=== PATIENT | female | born 1970 | race Caucasian/White ===

== ENCOUNTER → 2017-05-04 | Emergency (ER) | payer MEDICAID ==
[~2017-05-04] VITALS: Ht 172.7 cm; Wt 119.8 kg
--- NOTE | 2017-05-04 00:42 | Emergency Room Report ---
History of Present Illness Time Seen by MD Varner Presenting Problem in Triage Pt arrived:Wheelchair Presenting Problem:C/O MIGRAINE HEADACHE SINCE 1729. STATES SHE IS LIGHT SENSITIVE AND HAVING BLACK SPOTS IN HER VISION. HX MIGRAINES, STATES SHE TOOK TYLENOL AND BENADRYL AT HOME AT APPROX 1930. 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 N Clinical Suspician of Infection? N Mental Status: 1 - Regular (Normal Baseline) Sepsis Risk:Low Sepsis Risk Have you (or family members/close friends) recently traveled outside the [place]? N If Yes, where/when: Have you had exposure to infectious disease within the past month? N TB? Other? Specify: Source patient, RN notes reviewed, family, old records Exam Limitations no limitations Comment pt with hx of rivera with acute onset of rivera with visual scotoma- no fever or rash and no trauma Cardiac Chest Pain Chest pain indicative of cardiac No Timing/Duration this evening Severity moderate ALLERGIES Coded Allergies: clarithromycin (From BIAXIN) (12/01/16) ibuprofen (05/04/17) naproxen (From ALEVE) (12/01/16) penicillin G (12/01/16) Home Medications Reported Medications No Home Medications (NO HOME MEDICATIONS) 1 EACH XX ONCE Escitalopram Oxalate (Lexapro 20MG) 20 MG PO DAILY Hydroxyzine Pamoate (Vistaril) 25 MG PO TID OMEPRAZOLE MAGNESIUM (Prilosec 20MG) 20 MG PO DAILY Alprazolam 0.25 MG PO DAILY #14 History Medical History General CAD? No Angina: No [place]: No Hypertension? No Hyperlipidemia? No CHF? No DVT? No PE? No COPD? No Asthma? No Anemia? No GERD? No Gastric ulcers? No GI Bleed? No Hernia? Yes Thyroid Problems? No Hypothyroidism? No CVA? No Seizures? Yes Diabetes? No Insulin Dependent: No Insulin Pump: No End Stage Renal Disease? No UTI? Yes Stones? No BPH? No GB Disease: Yes Nephritic Syndrome? No Asplenia? No Hepatitis? No Sickle Cell Disease? No Arthritis? No Migraines? Yes Cataracts? No Glaucoma? No MRSA? Yes HIV? No TB? No Anxiety? No Depression? No Cancer? No More? 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 Respiratory denies cough, denies shortness of breath, denies wheezing Cardiovascular denies chest pain, denies syncope Gastrointestinal see HPI, denies abdominal pain, denies diarrhea, nausea, denies vomiting Genitourinary denies: dysuria, frequency, hesitancy, hematuria. Musculoskeletal denies back pain, denies joint pain, denies neck pain Skin denies rash Psychiatric/Neurological see HPI, headache, denies seizure Physical Exam Vital Signs Vital Signs Date Time Temp Pulse Resp B/P Pulse O2 O2 Flow FiO2 Ox Delivery Rate 05/04 0015 98.0 71 20 158/95 97 - WBC >12,000 or <4,000 or 10% bands? 2 or more SIRS Criteria Met? B/P:158/95 MAP:116 Creatinine >2.0? UA output<0.5ml/kg/hr for 2 hrs? Platelet count >100,000? Lactate >2.0mmol/1? INR >1.2 or PTT > than 60 sec? Evidence of Organ Dysfunction? Provider documented clinical suspician of infection? N Sepsis Criteria Count: 1 Sepsis Risk: Low Sepsis Risk General Appearance no apparent distress Eye Exam - bilateral eye PERRL, bilateral eye EOMI Ear, Nose, Throat normal ENT inspection Neck non-tender Respiratory Status No: respiratory distress. 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 No Departure Departure Time of Disposition 0037 Disposition DC Home or Self Care(routine) Clinical Impression Primary Impression: Headache Qualifiers: Headache type: unspecified Headache chronicity pattern: acute headache Intractability: not intractable Qualified Code: R51 - Headache Condition STABLE Referrals Mei Kamara APRN Patient Instructions DI for Headache Additional Instructions call pcp in am for follow up Discharge Counseling Counseled pt/family regarding diagnosis, medications/RX, follow up needs ED Critical Care Critical Care No at 0042
--- NOTE | 2017-05-04 00:42 | Emergency Room Report ---
History of Present Illness Time Seen by MD Varner Presenting Problem in Triage Pt arrived:Wheelchair Presenting Problem:C/O MIGRAINE HEADACHE SINCE 1729. STATES SHE IS LIGHT SENSITIVE AND HAVING BLACK SPOTS IN HER VISION. HX MIGRAINES, STATES SHE TOOK TYLENOL AND BENADRYL AT HOME AT APPROX 1930. 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 N Clinical Suspician of Infection? N Mental Status: 1 - Regular (Normal Baseline) Sepsis Risk:Low Sepsis Risk Have you (or family members/close friends) recently traveled outside the [place]? N If Yes, where/when: Have you had exposure to infectious disease within the past month? N TB? Other? Specify: Source patient, RN notes reviewed, family, old records Exam Limitations no limitations Comment pt with hx of rivera with acute onset of rivera with visual scotoma- no fever or rash and no trauma Cardiac Chest Pain Chest pain indicative of cardiac No Timing/Duration this evening Severity moderate ALLERGIES Coded Allergies: clarithromycin (From BIAXIN) (12/01/16) ibuprofen (05/04/17) naproxen (From ALEVE) (12/01/16) penicillin G (12/01/16) Home Medications Reported Medications No Home Medications (NO HOME MEDICATIONS) 1 EACH XX ONCE Escitalopram Oxalate (Lexapro 20MG) 20 MG PO DAILY Hydroxyzine Pamoate (Vistaril) 25 MG PO TID OMEPRAZOLE MAGNESIUM (Prilosec 20MG) 20 MG PO DAILY Alprazolam 0.25 MG PO DAILY #14 History Medical History General CAD? No Angina: No ID: No Hypertension? No Hyperlipidemia? No CHF? No DVT? No PE? No COPD? No Asthma? No Anemia? No GERD? No Gastric ulcers? No GI Bleed? No Hernia? Yes Thyroid Problems? No Hypothyroidism? No CVA? No Seizures? Yes Diabetes? No Insulin Dependent: No Insulin Pump: No End Stage Renal Disease? No UTI? Yes Stones? No BPH? No GB Disease: Yes Nephritic Syndrome? No Asplenia? No Hepatitis? No Sickle Cell Disease? No Arthritis? No Migraines? Yes Cataracts? No Glaucoma? No MRSA? Yes HIV? No TB? No Anxiety? No Depression? No Cancer? No More? 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 Respiratory denies cough, denies shortness of breath, denies wheezing Cardiovascular denies chest pain, denies syncope Gastrointestinal see HPI, denies abdominal pain, denies diarrhea, nausea, denies vomiting Genitourinary denies: dysuria, frequency, hesitancy, hematuria. Musculoskeletal denies back pain, denies joint pain, denies neck pain Skin denies rash Psychiatric/Neurological see HPI, headache, denies seizure Physical Exam Vital Signs Vital Signs Date Time Temp Pulse Resp B/P Pulse O2 O2 Flow FiO2 Ox Delivery Rate 05/04 0015 98.0 71 20 158/95 97 - WBC >12,000 or <4,000 or 10% bands? 2 or more SIRS Criteria Met? B/P:158/95 MAP:116 Creatinine >2.0? UA output<0.5ml/kg/hr for 2 hrs? Platelet count >100,000? Lactate >2.0mmol/1? INR >1.2 or PTT > than 60 sec? Evidence of Organ Dysfunction? Provider documented clinical suspician of infection? N Sepsis Criteria Count: 1 Sepsis Risk: Low Sepsis Risk General Appearance no apparent distress Eye Exam - bilateral eye PERRL, bilateral eye EOMI Ear, Nose, Throat normal ENT inspection Neck non-tender Respiratory Status No: respiratory distress. 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 No Departure Departure Time of Disposition 0037 Disposition DC Home or Self Care(routine) Clinical Impression Primary Impression: Headache Qualifiers: Headache type: unspecified Headache chronicity pattern: acute headache Intractability: not intractable Qualified Code: R51 - Headache Condition STABLE Referrals Mei Kamara APRN Patient Instructions DI for Headache Additional Instructions call pcp in am for follow up Discharge Counseling Counseled pt/family regarding diagnosis, medications/RX, follow up needs ED Critical Care Critical Care No at 0042
[2017-05-04 00:58] VITALS: BP 138/89
--- OUTSIDE RECORDS SUMMARY | 2017-05-14 02:23 | External Medical Summary Rpt | CCD ---
Demographics Preferred Language Vietnamese Marital Status Unknown Christian Affiliation Unknown Race Unknown Ethnic Group Unknown Author Author , DIANNE DEAN Address Unknown Phone Immunization Unable to retrieve immunization data due to connection failure with Immunization Registry. Please try again later.
--- OUTSIDE RECORDS SUMMARY | 2017-05-14 02:23 | External Medical Summary Rpt | CCD ---
Demographics Preferred Language Romansh Marital Status Unknown Faith Affiliation Unknown Race Unknown Ethnic Group Unknown Author Author , DIANNE DEAN Address Unknown Phone Immunization Unable to retrieve immunization data due to connection failure with Immunization Registry. Please try again later.
== END ==
LOC: ER 00:11
DX: R51 Headache (principal); Z88.0 Allergy status to penicillin; Z88.6 Allergy status to analgesic agent; F17.210 Nicotine dependence, cigarettes, uncomplicated

== ENCOUNTER → 2017-05-21 | Outpatient (CLI) | payer MEDICAID ==
[~2017-05-21] MED LIST: ALBUTEROL2 PUFFS/17 IN; ALPRAZOLAM0.25 M2 PO; ALPRAZOLAM0.5 M3 PO; ANUSOL HC 25MG25 MG PR; APAP/BUTALBITAL1 TA1 PO; ATIVAN1 M1 PO; ATIVAN1 MG OR; ATIVAN1 MG PO; AURALGAN OT10 ML/BOT OT; AVELOX400 MG PO; BACTRIM DS 8001 TA1 PO; BACTRIM DS 8001 TAB PO; BENTYL GENERIC10 MG PO; BIAXIN500 MG PO; CIPRO 500MG TA500 MG PO; CORTISPORIN OTI10 M1 OT; DARVOCET-N 1001 EACH PO; DARVOCET-N6 EACH/PAK PO; DOXYCYCLINE MO100 MG PO; DULCOLAX 5MG TAB5 MG PO; FIBER CHOICE1 CTB PO; FIORICET 325 MG1 TAB PO; FLEXERIL10 M1 PO; FLEXERIL10 MG PO; HYDROCODONE1 TABLET PO; KEFLEX 500MG.500 MG PO; LEVAQUIN500 MG PO; LEVSIN 0.1250.125 MG SL; LEXAPRO 20 MG T20 MG PO; LOMOTIL 2.5MG.2.5 MG PO; LORTAB 5/500 501 TAB; LORTAB 5/500 501 TAB PO; LORTAB 500 MG-71 TAB PO; MEDROL 4MG. DOSE4 MG PO; NAPROSYN 500MG500 MG PO; NEURONTIN 100100 MG OR; NOMEDS; NOMEDS *; NOMEDS XX; PERCOCET 10 MG1 EACH PO; PERCOCET 5/3251 EACH PO; PERCOGESIC EXTR1 TAB PO; PHENERGAN 25MG.25 M1 PO; PREDNISONE 10MG10 MG PO; PREDNISONE 20MG20 MG PO; PREDNISONE 5MG.5 MG PO; PREDNISONE50 MG PO; PREMARIN1.25 MG PO; PRILOSEC20 M1 PO; PROAIR HFA0.09 MG/AC IH; PYRIDIATE200 MG PO; ROBAXIN-750750 MG PO; SEPTRA DS 800 M1 TAB PO; SKELAXIN 800MG800 MG PO; STERAPRED DS10 MG PO; SULFAMETHOXAZOL1 TA6 PO; TESSALON PERLE100 M1 PO; TESSALON PERLE100 MG PO; TRAMADOL 50MG T50 MG PO; TRAZODONE50 MG PO; TYLENOL 325MG325 MG PO; TYLENOL ES500 M1 PO; TYLENOL ES500 MG PO; TYLENOL EXTRA500 M1 PO; TYLENOL PM1 CAP PO; TYLENOL W/CODEI1 TA2 PO; Tramadol HCl50 MG PO; ULTRACET 325 MG1 TAB PO; ULTRAM 50 MG TA50 MG PO; VICODIN 5/500 T1 TAB PO; VICODIN 7.5/501 EACH PO; VISTARIL25 M1 PO; VISTARIL25 MG PO; XANAX0.5 MG PO; ZANAFLEX4 MG PO; ZITHROMAX Z PA250 MG PO; ZOFRAN ODT8 MG PO
[2017-05-21 19:16] LABS: AMPHETAMINES/METAMPHETAMINES NEGATIVE ng/mL (<1000)
== END ==
LOC: LAB 15:25
PROVIDERS: Nurse Practitioner Family
DX: Z79.899 Other long term (current) drug therapy (principal)

== ENCOUNTER 2017-05-29 19:22 | Emergency (ER) | payer MEDICAID ==
[~2017-05-29] VITALS: Ht 167.6 cm; Wt 128.8 kg
[~2017-05-29 19:22] MED LIST changes: -PROAIR HFA0.09 MG/AC IH; -TESSALON PERLE100 M1 PO
--- NOTE | 2017-05-29 19:56 | Urgent Treatment Center Report ---
History of Present Issue Date/Time Seen by Provider 05/29/171948 Visit Reason Pt arrived:Walked Presenting Problem:PT C/O NON-PRODUCTIVE COUGH, SOA, CHEST CONGESTION X1.5 WEEKS Location if Accident: Onset of symptoms date/time:/ or onset unknown for:MEDICAL HX UNKNOWN Have you (or family members/close friends) recently traveled outside the [place]? N If Yes, where/when: Have you had exposure to infectious disease within the past month? TB? Other? Specify: Patient state that she has not bee feeling well, State that she feels like she may have bronchitis or maybe even pneumonia State that she has had cough, feeling like she couldn't get good breath and congestion in her chest for around 2 weeks now State that she thought she better come in and get it checked out ALLERGIES Coded Allergies: clarithromycin (From BIAXIN) (12/01/16) ibuprofen (05/04/17) naproxen (From ALEVE) (12/01/16) penicillin G (12/01/16) Home Medications Reported Medications No Home Medications (NO HOME MEDICATIONS) 1 EACH XX ONCE Escitalopram Oxalate (Lexapro 20MG) 20 MG PO DAILY Hydroxyzine Pamoate (Vistaril) 25 MG PO TID OMEPRAZOLE MAGNESIUM (Prilosec 20MG) 20 MG PO DAILY Alprazolam 0.25 MG PO DAILY #14 History Medical History General CAD? No Angina: No [place]: No Hypertension? No Hyperlipidemia? No CHF? No DVT? No PE? No COPD? No Asthma? No Anemia? No GERD? No Gastric ulcers? No GI Bleed? No Hernia? Yes Thyroid Problems? No Hypothyroidism? No CVA? No Seizures? Yes Diabetes? No Insulin Dependent: No Insulin Pump: No Renal Insuffiency? No UTI? Yes Stones? No BPH? No GB Disease: Yes Nephritic Syndrome? No Asplenia? No Hepatitis? No Sickle Cell Disease? No Arthritis? No Migraines? Yes Cataracts? No Glaucoma? No MRSA? Yes HIV? No TB? No Anxiety? No Depression? No Cancer? No More? No Immunization HX DT/Tetanus 5-10 YRS Flu NEVER Pneumonia NEVER Surgical Hx Previous Surgery?Y X 1 Tonsils Tubal Ligation ROGERIO REMOVAL OF ADHESIONS X5 EARS-KERATOSIS REMOVAL HERNIA REPAIR X3 RIGHT SHOULDER REPAIR HEMORRHOIDECTOMY X 3 LEFT SHOULDER CHOLECYSTECTOMY RT BSO REMOVAL ABD ADHESIONS HYSTERECTOMY COMPLET Family History Family HX Diabetes No CAD Yes Hypertension Yes Hyperlipidemia Yes Cancer No TB No Social History Smoking Hx Smoker: Current Every Day Smoker Tobacco: Yes Type Cigarettes Packs/day 1 1/2 - 2 Packs Alcohol Alcohol: No Review of Systems All Other Systems Reviewed and Negative Constitutional fever ENT throat pain. Respiratory cough, shortness of breath, denies stridor, denies wheezing Cardiovascular denies chest pain, denies palpitations Physical Exam Vital Signs Vital Signs Date Time Temp Pulse Resp B/P Pulse O2 O2 Flow FiO2 Ox Delivery Rate 05/29 1931 97.8 83 20 114/63 94 General Appearance normal appearance, WD/WN, no apparent distress Ear, Nose, Throat Throat red, irritated Respiratory Status Yes: trachea midline, chest symmetrical. No: respiratory distress. Lung Sounds bilateral: normal breath sounds. right: rhonchi. Cardiovascular normal exam, regular rate/rhythm Peripheral Pulses Pulses normal Yes Gastrointestinal normal bowel sounds, normal exam, non tender Strength 4 Upper Ext (L), 4 Upper Ext (R), 4 Lower Ext (L), 4 Lower Ext (R) Neurologic alert, normal exam, oriented x 3 Medical Decision Making LABS/Meds/Orders Pt receiving controlled substance in ED? No Results/Orders Current Medication Orders Sig/Luz Start time Last Medication Dose Route Stop Time Status Admin Levofloxacin 500 MG ONCE ONE 05/29 2015 AC PO 05/29 2016 Orders Procedure Date/time Status CHEST(2 VIEWS-NOT PORTABLE) 05/29 1931 Active XRAY/CT/US XRAY/CT/US XRAY chest XR interpretation by reviewed by me Comment Discussed with Dr Jaime Departure Departure Time of Disposition 1956 Disposition [place] Home or Self Care(routine) Clinical Impression Primary Impression: Bronchitis Condition STABLE Referrals Mei Kamara APRN (Family): 2 Days-Call Office Patient Instructions DI for Acute Bronchitis, DI for Chronic Bronchitis, Guaifenesin Additional Instructions * Monitor Temp. Tylenol and/or Ibuprofen as needed. ER if fever is no less than 101 despite alternating Tylenol and Ibuprofen * Encourage fluids, water, Gatorade, powerade, pedialyte if /toddler/or child * Warm salt water gargles for throat irritation *Warm fluids *Sore throat lozenges *Sleep elevated *humidifier or vaporizer Lots of rest Increase fluids, water, Gatorade, powerade Discharge Counseling Counseled pt/family regarding diagnosis, test results, medications/RX, home care, follow up needs Prescriptions Current Visit Scripts Levofloxacin (Levaquin 500MG) 500 MG PO DAILY #7 TAB Albuterol Sulfate (Proair Hfa) 2 PUFFS IH Q6HP PRN shortness of air #1 INH Methylprednisolone (Medrol Dose Donald) 4 MG PO UD #1 DONALD TAKE DIRECTED ON PACKAGING Benzonatate (Tessalon Perle) 100 MG PO TID #15 SGL at 2005
[2017-05-29] MEDS ORDERED: MEDROL 4MG. DOSE4 MG PO (20:04)
[2017-05-29] MEDS ORDERED: TESSALON PERLE100 M1 PO (20:04)
[2017-05-29] MEDS ORDERED: LEVAQUIN500 MG PO (20:04)
[2017-05-29] MEDS ORDERED: PROAIR HFA0.09 MG/AC IH (20:04)
[2017-05-29 20:21] VITALS: BP 114/63
--- OUTSIDE RECORDS SUMMARY | 2017-05-29 21:08 | External Medical Summary Rpt | CCD ---
Demographics Preferred Language Danish Marital Status Unknown Congregation Affiliation Unknown Race Unknown Ethnic Group Unknown Author Author , DIANNE DEAN Address Unknown Phone Immunization No patient found.
--- OUTSIDE RECORDS SUMMARY | 2017-05-29 21:08 | External Medical Summary Rpt | CCD ---
Demographics Preferred Language Haitian Marital Status Unknown Latter Day Affiliation Unknown Race Unknown Ethnic Group Unknown Author Author , DIANNE DEAN Address Unknown Phone Immunization No patient found.
--- OUTSIDE RECORDS SUMMARY | 2017-05-29 21:08 | External Medical Summary Rpt ---
Author Author DIANNE Wolfe, [employer] Address Unknown Phone Unavailable
--- NOTE | 2017-05-30 06:32 | RADIOLOGY REPORT PS360 ---
CHEST(2 VIEWS-NOT PORTABLE) HISTORY: COUGH, SOA, CHEST CONGESTION X1.5 WEEKS ORDERING PHYSICIAN: MINE PLEITEZ APRN PATIENT AGE: 46 years COMPARISON: 09/15/2010 FINDINGS: Unremarkable heart size. There is chronic coarsening of the bronchovascular markings. Patchy density is noted in the right lower lung zone consistent with an area of atelectasis and/or infiltrate superimposed upon chronic changes. Postsurgical changes left shoulder. Mild degenerative change lower thoracic spine. IMPRESSION: 1. Chronic interstitial changes. 2. Suspect superimposed patchy atelectasis and/or infiltrate right lung base.
== END 2017-05-29 20:28 | disposition home or self-care (01) ==
LOC: UTC 19:22
DX: J20.9 Acute bronchitis, unspecified (principal); F17.210 Nicotine dependence, cigarettes, uncomplicated; Z88.0 Allergy status to penicillin; Z88.6 Allergy status to analgesic agent